=== PATIENT | female | born 2000 ===

== ENCOUNTER 2021-01-16 12:30 | Inpatient (IN) | payer OTHER ==
[~2021-01-16] VITALS: Ht 157.5 cm; Wt 65.3 kg
[2021-01-22] MEDS ORDERED: IRON18 MG (12:47)
[2021-01-22] MEDS ORDERED: PRENATA CHEWAB1 EACH (12:47)
== END 2021-01-25 13:05 | disposition home or self-care (01) | DRG 788 ==
LOC: LDR 01-22 11:18 → OB/GYN 01-22 11:18 → SURH 01-29 12:30
PROVIDERS: ADMIT Obstetrics & Gynecology; ATTEND Obstetrics & Gynecology
PROC: 10907ZC Drainage of Amniotic Fluid, Therapeutic from Products of Conception, Via Natural or Artificial Opening (ICD-10-PCS; 2021-01-22)
PROC: 4A1HXFZ Monitoring of Products of Conception, Cardiac Rhythm, External Approach (ICD-10-PCS; 2021-01-22)
PROC: 10D00Z1 Extraction of Products of Conception, Low, Open Approach (ICD-10-PCS; principal; 2021-01-22 16:00)
DX: O82 Encounter for cesarean delivery without indication (principal); Z53.29 Procedure and treatment not carried out because of patient's decision for other reasons; O76 Abnormality in fetal heart rate and rhythm complicating labor and delivery; O99.824 Streptococcus B carrier state complicating childbirth; Z3A.39 39 weeks gestation of pregnancy; Z37.0 Single live birth

== ENCOUNTER → 2021-02-06 | Emergency (ER) | payer OTHER ==
[~2021-02-06] MED LIST: IRON18 MG; PRENATA CHEWAB1 EACH
== END | disposition left against medical advice (07) ==
LOC: ER 21:17
DX: Z53.21 Procedure and treatment not carried out due to patient leaving prior to being seen by health care provider (principal)

== ENCOUNTER 2022-10-12 14:47 | Inpatient (IN) | payer OTHER ==
[~2022-10-12] VITALS: Ht 157.5 cm; Wt 2.7 kg
== END 2022-10-17 14:27 | disposition home or self-care (01) | DRG 785 ==
LOC: LDR 10-15 09:17 → O/R 10-15 14:29 → OB/GYN 10-15 15:22
PROVIDERS: Obstetrics & Gynecology; ADMIT Obstetrics & Gynecology Gynecology; ATTEND Obstetrics & Gynecology Gynecology
PROC: 0UB70ZZ Excision of Bilateral Fallopian Tubes, Open Approach (ICD-10-PCS; 2022-10-15)
PROC: 4A1HXCZ Monitoring of Products of Conception, Cardiac Rate, External Approach (ICD-10-PCS; 2022-10-15)
PROC: 10D00Z1 Extraction of Products of Conception, Low, Open Approach (ICD-10-PCS; principal; 2022-10-15 12:55)
DX: O34.211 Maternal care for low transverse scar from previous cesarean delivery (principal); Z30.2 Encounter for sterilization; Z3A.38 38 weeks gestation of pregnancy; Z37.0 Single live birth; Z20.822 Contact with and (suspected) exposure to COVID-19